=== PATIENT | male | born 1960 | race Caucasian/White ===

== ENCOUNTER 2017-02-10 09:53 | Emergency (ER) | payer BC, OTHER ==
[~2017-02-10] VITALS: Ht 193 cm; Wt 93.0 kg
--- NOTE | 2017-02-10 10:25 | RAD ---
Indication pain. Status post fall. PA and lateral views of the chest were obtained. No prior imaging of the chest is available. The heart and pulmonary vessels appear normal. On the lateral view there is a possible nodule seen anterior to a lower thoracic vertebral body segment. This may represent a confluence of shadows. Follow-up imaging should be considered. An acute finding in the chest is not seen. There is no significant pleural fluid. There is no pneumothorax. IMPRESSION: Possible nodule as described above seen on the lateral view. No acute finding apparent in the chest
[2017-02-10 10:32] VITALS: BP 144/73
--- NOTE | 2017-02-10 13:32 | ED.ADGEN ---
Past History Past Medical History: No Pertinent History Past Surgical History: No Surgical History Alcohol Use: None Drug Use: None Adult General HPI HPI Patient is a 56-year-old male presents emergency department complaining of abrasions to his abdomen and left-sided chest wall pain. Last night he was trying to help trim a tree when a branch he was standing on broke. The patient consequently fell possibly [address] down he did hit his abdomen and chest against a tree trunk. He is had no prehospital intervention. He states pain is worse with deep inspiration. Review of Systems Review of Systems Constitutional: Denies fever or chills [] Eyes: Denies change in visual acuity, redness, or eye pain [] HENT: Denies nasal congestion or sore throat [] Respiratory: Denies cough or shortness of breath [] Cardiovascular: No additional information not addressed in HPI [] GI: Denies abdominal pain, nausea, vomiting, bloody stools or diarrhea [] : Denies dysuria or hematuria [] Musculoskeletal: Denies back pain or joint pain [] Integument: Denies rash or skin lesions [] Neurologic: Denies headache, focal weakness or sensory changes [] Endocrine: Denies polyuria or polydipsia [] Allergies Allergies Allergies Coded Allergies Type Severity Reaction Last Updated Verified No Known Allergies Allergy Unknown 07/14/14 No Physical Exam Physical Exam Constitutional: Well developed, well nourished, no acute distress, non-toxic appearance. [] HENT: Normocephalic, atraumatic, bilateral external ears normal, oropharynx moist, no oral exudates, nose normal. [] Eyes: PERRLA, EOMI, conjunctiva normal, no discharge. [] Neck: Normal range of motion, no tenderness, supple, no stridor. [] Cardiovascular:Heart rate regular rhythm, no murmur [] Lungs & Thorax: Bilateral breath sounds clear to auscultation, left anterior chest wall is tender to palpation [] Abdomen: Bowel sounds normal, soft, no tenderness, no masses, no pulsatile masses. [] Skin: Warm, dry, no erythema, no rash. [] Extremities: No tenderness, no cyanosis, no clubbing, ROM intact, no edema. [] Neurologic: Alert and oriented X 3, normal motor function, normal sensory function, no focal deficits noted. [] Psychologic: Affect normal, judgement normal, mood normal. [] Current Patient Data Vital Signs Vital Signs Date Time Temp Pulse Resp B/P Pulse Ox O2 Delivery O2 Flow Rate FiO2 02/10/17 10:32 64 12 144/73 99 02/10/17 10:05 98.5 Room Air EKG EKG [] Radiology/Procedures Radiology/Procedures Indication pain. Status post fall. PA and lateral views of the chest were obtained. No prior imaging of the chest is available. The heart and pulmonary vessels appear normal. On the lateral view there is a possible nodule seen anterior to a lower thoracic vertebral body segment. This may represent a confluence of shadows. Follow-up imaging should be considered. An acute finding in the chest is not seen. There is no significant pleural fluid. There is no pneumothorax. IMPRESSION: Possible nodule as described above seen on the lateral view. No acute finding apparent in the chest DICTATED AND SIGNED BY: NICK MONTANA MD DATE: 02/10/17 1021 CC: KALLIE ASKEW MD; PCP,NO ~[] Course & Med Decision Making Course & Med Decision Making Pertinent Labs and Imaging studies reviewed. (See chart for details) Reassuring workup. Patient is given supportive care and follow-up instructions. [] Final Impression Final Impression Rib contusion [] Problems: Dragon Disclaimer Dragon Disclaimer This electronic medical record was generated, in whole or in part, using a voice recognition dictation system. KALLIE ASKEW MD Feb 10, 2017 13:31
== END 2017-02-10 10:46 | disposition home or self-care (01) ==
LOC: ER 09:53
DX: S20.212A Contusion of left front wall of thorax, initial encounter (principal); S30.811A Abrasion of abdominal wall, initial encounter; W14.XXXA Fall from tree, initial encounter; Y93.89 Activity, other specified; Y99.8 Other external cause status; Y92.89 Other specified places as the place of occurrence of the external cause
CPT/HCPCS: 71020; 99284